=== PATIENT | female | born 1990 | race Caucasian/White ===

== ENCOUNTER 2016-04-15 11:12 | Outpatient (CLI) | payer BC | END 2016-04-15 11:13 | disposition home or self-care (01) | LOC: NC 11:12 | PROVIDERS: ATTEND Nurse Practitioner Family | DX: O99.810 Abnormal glucose complicating pregnancy (principal); O99.210 Obesity complicating pregnancy, unspecified trimester; Z71.3 Dietary counseling and surveillance; Z68.41 Body mass index [BMI] 40.0-44.9, adult ==

== ENCOUNTER 2016-04-29 12:56 | Outpatient (CLI) | payer BC | END 2016-04-29 12:57 | disposition home or self-care (01) | LOC: NC 12:56 | PROVIDERS: ATTEND Nurse Practitioner Family | DX: O99.210 Obesity complicating pregnancy, unspecified trimester (principal); Z71.3 Dietary counseling and surveillance; Z68.41 Body mass index [BMI] 40.0-44.9, adult; R73.02 Impaired glucose tolerance (oral) ==

== ENCOUNTER 2016-05-31 13:28 | Inpatient (IN) | payer BC ==
[2016-06-03] MEDS ORDERED: LIDOCAINE 1% (PRES FREE) 30 ML VIAL ONE (07:17)
[2016-06-03] MEDS ORDERED: MINERAL OIL 25 ML BOT ONE (07:17)
[2016-06-03] MEDS ORDERED: LIDOCAINE Viscous 2% 15 ML UDCUP ONE (07:17)
[2016-06-03] MEDS ORDERED: OXYTOCIN 10 UNITS/ML VIAL ONE (07:17)
[2016-06-03] MEDS ORDERED: IV START KIT ONE (07:17)
[2016-06-03] MEDS ORDERED: SODIUM CHLORIDE 0.9% FLUSH 10 ML ONE (07:17)
[2016-06-03] MEDS ORDERED: OXYTOCIN IN LR 500 ML IV ONE ×2 (07:18→09:55)
[2016-06-03] MEDS ORDERED: PUMP TUBING ONE (07:18)
[2016-06-03 08:04] VITALS: BMI 44.2
--- NOTE | 2016-06-03 10:03 | PCMAN ---
OB Admission Note - History : 1 Term: 0 : 0 Abortions (S&E): 0 Livin Gestational Age (weeks): 40 Days (#/7): 3 Admit Cervical Dilation:: 1.5 Admit Cervical Effacement (%):: 75 Admit Station:: -1 Admit Presentaton:: vertex Membrane Status: Intact Contractions: Yes Contraction Frequency:: q5-7 Heart Rate:: 140 Status:: Cat I - Labs Blood Type: O (+) positive Hct/Hgb:: 10.7 Rubella Status: Immune GBS Status: Negative Abnormal Labs: None - Review of Systems Denies F/C, cough, SOB, CP, palpitations. +occasional contractions. +FM, -VB/LOF - Physical Exam General: Afebrile Psych/Mental Status: Mood/Affect Appropriate, Judgment/Insight Intact Neurological: Grossly Intact, Alert, Oriented x 4, Normal Gait HEENT: Atraumatic, PERRLA, EOMI Lungs: Clear to Auscultation Bilaterally, Normal Air Movement Cardiovascular: Regular Rate and Rhythm, Normal S1, Normal S2 Abdomen: Normal Bowel Sounds Genitourinary: Normal Female Genitalia Extremities: Full ROM Skin: Normal Color, Warm, Dry, Intact - Problems (1) Gestational diabetes Qualifiers: Gestational diabetes mellitus control: diet-controlled Trimester: third trimester Qualifier Code: (O24.410) Gestational diabetes mellitus in , diet controlled Status: Acute Code: O24.419 - Additional Comments IOL for GDMA1, well controlled. cytotec 25 PV if contractions space out. FHT Cat I Expect .
[2016-06-03 10:13] LABS: HEMATOCRIT 35.8 % (37.0-47.0); HEMOGLOBIN 12.1 gm/l (12.0-16.0); MEAN CELL VOLUME 84.4 fl (81.0-99.0); MEAN CORPUSCULAR HEMOGLOBIN 28.5 pg (27.0-31.0); MEAN CORPUSCULAR HGB CONC 33.8 g/dl (33.0-37.0); RED CELL DISTRIBUTION WIDTH 13.7 % (11.5-14.5)
[2016-06-03] MEDS: MISOPROSTOL 25 MCG TABLET VG SCH ×3 (11:05→18:55)
--- NOTE | 2016-06-03 12:00 | PDOC36 ---
Provider Note Subject: Patient starting to feel regular contractions. Declines any pain medicine at this time. VSS SVE: deferred FHT: 120/mod/+accels/-decels [place]ell: 3-10 A/P: 25yo @40.3, IOL GDM -Cytotec placed @11AM. -FHT Cat I -Feeling increased contractions. -Continue to monitor. -Reevaluate @1500.
--- NOTE | 2016-06-03 15:52 | PDOC36 ---
Provider Note Subject: Patient doing well. Feeling contractions. Declines medication for pain at this time VSS SVE: /90/-1, intact FHT: 140/mod/+accel/-decel [place]: q3-4 min A/P 25yo @39.3 IOL GDM Continue monitoring. Pitocin if contractions space out. FHT Cat I since admission.
[2016-06-03] MEDS: LACTATED RINGERS 1,000 ML IV PRN (20:21)
[2016-06-03] MEDS: OXYTOCIN IN LR 500 ML IV PRN ×2 (21:06→21:45)
[2016-06-04] MEDS: LACTATED RINGERS 1,000 ML IV PRN ×5 (01:55→20:38)
[2016-06-04] MEDS: OXYTOCIN IN LR 500 ML IV PRN ×9 (02:37→17:49)
--- NOTE | 2016-06-04 09:25 | PDOC36 ---
Provider Note Subject: [place] of care Note: S: Jenny only slept for perhaps 2 hours last night but is doing OK and wants to have this baby today. She is hungry and is fasting since dinner last night. Jenny is a 25yo now at 40w4d admitted yesterday by Dr Medina for induction: she has GDM fairly well controlled with diet and Metformin 1000mg qPM. She had a good response to a single dose of misoprostol yesterday morning. She then was on low dose pitocin overnight. Her baby "Barrera" has been doing well with a normal sleep/wake cycle, mostly category 1 with a baseline at 120. Pt having regular mild contrx q 2-4 mins, now a bit more frequent on pit 10mu/mn. [facility] and [facility] charts reviewed. Pt is here with her Zach, and her mother. Exam: Jenny is awake and alert and engaged. She moves with good energy. EFW 7.5-8 lbs, cephalic back to mat left VE cervix anterior, vertex applied at -2 station, 2cm, soft, 80%, not stretchy Imp: GDM with favorable exam but not much measurable change with pit overnight. Fasting glc is 83. Pt will have a real breakfast. She needs to get up, out of bed, moving around. Plan: Continue pitiocin at 10mu for now. Re-eval in 2-3 hours.
[2016-06-04] MEDS: MISOPROSTOL 25 MCG TABLET VG SCH ×2 (10:20→10:21)
[2016-06-04] MEDS ORDERED: OXYTOCIN IN LR 500 ML IV PRN (11:28)
--- NOTE | 2016-06-04 11:59 | PDOC36 ---
Provider Note Subject: Lu balloon Note: S: Pt not feeling contractions much, but doing better after breakfast and getting out of bed. Options discussed. Exam: cervix ant, 2cm, soft but not stretchy, vertex -1 station and well applied , membranes intact. Since this cervix still needs to get more stretchy, it was decided to try a lu balloon. Pt agrees. This was placed gently thru the cervix and inflated with 35 cc of saline. Pt began having more pressure and painful contrx even with the pitocin off. Plan is to watch for 30-60 min. If contractions space out, we will restart with a new bag of pitocin. Hopefully AROM with next exam.
[2016-06-04] MEDS ORDERED: PUMP TUBING ONE (17:17)
--- NOTE | 2016-06-04 17:32 | PDOC36 ---
Provider Note Subject: AROM Note: Jenny had a good nap for a little over 1 hour. She felt more relaxed and rested. Mild contractions. Exam: FH cat 1, excellent variability. VE cervix now 4cm and lu balloon half in vagina. Vertex -1, cvx 3-4cm and stretchy, soft, 90% With pt's permission, AROM performed yielding clear fluid. Imp: Hopefully this will help with progress into active labor. Plan: Expectant managt.
[2016-06-04] MEDS ORDERED: LACTATED RINGERS 500 ML IV ONE (17:47)
[2016-06-04] MEDS ORDERED: EPIDURAL PUMP SET ONE (19:27)
[2016-06-04] MEDS ORDERED: FENTANYL/ROPIVACAINE EPIDURAL 250 ML EP ONE (19:27)
[2016-06-04] MEDS ORDERED: FENTANYL 100 MCG/2 ML VIAL ONE (19:59)
[2016-06-04] MEDS ORDERED: EPIDURAL PROCEDURE TRAY ONE (20:00)
[2016-06-04] MEDS ORDERED: LIDOCAINE 2% (PRES FREE) 5 ML VIAL ONE (20:00)
[2016-06-04] MEDS ORDERED: FENTANYL/ROPIVACAINE EPIDURAL 250 ML EP SCH (20:00)
[2016-06-04] MEDS ORDERED: LACTATED RINGERS 1,000 ML IV SCH (20:38)
[2016-06-04] MEDS ORDERED: SODIUM CHLORIDE 0.9% 500 ML IV PRN (20:38)
[2016-06-04] MEDS ORDERED: NALBUPHINE HCL 20 MG/ML AMP IV PRN (20:38)
[2016-06-04] MEDS ORDERED: ONDANSETRON 4 MG/2ML 2 ML VIAL IV PRN (20:38)
[2016-06-04] MEDS ORDERED: EPHEDRINE SULFATE 50 MG/ML 1ML VIAL IV PRN (20:38)
[2016-06-04] MEDS ORDERED: NALOXONE HCL 0.4 MG/ML VIAL IV PRN (20:38)
[2016-06-04] MEDS ORDERED: LACTATED RINGERS 500 ML IV PRN (20:38)
[2016-06-04] MEDS ORDERED: METOCLOPRAMIDE HCL 5 MG/ML 2ML VIAL IV PRN (20:38)
[2016-06-04] MEDS ORDERED: DIPHENHYDRAMINE HCL 50 MG/1 ML VIAL IV PRN (20:38)
--- NOTE | 2016-06-04 21:22 | PDOC36 ---
Provider Note Subject: Progress Note: S: pt is feeling great: her epidural is working well and she is feeling no pain. She would like to take a nap. O: last exam by RN 30' ago showed 4-5 cm Funez was placed. Contractions were getting much stronger. FH improved after pt moved to left side; now adq variability with no decels. Pitocin at 5 mu/mn Imp: Active phase of labor. Plan: Continue pitocin. Nap. Then re-eval in about 2 hours.
--- NOTE | 2016-06-04 23:21 | PDOC36 ---
Provider Note Subject: Progress? Note: S: pt is resting well, only a bit aware of contrx. O: VS stable, FH moderate variability 120's, but some segments of low variability No persistent decels VE: cervix anterior, vtx loosely applied at -1 station, position ROP maybe, cervix is stretchy, 95%, not edematous, but only 5cm dilated. pelvis seems adequate It was recommended that an IUPC be placed for better titration of pitocin. Pt agreed. IUPC placed without difficulty, + bloody show Imp: Slow progress, this was explained to pt and family. Plan: Position change Increase pitocin as allowed.
[2016-06-05] MEDS: OXYTOCIN IN LR 500 ML IV PRN ×2 (01:36→02:23)
--- NOTE | 2016-06-05 01:42 | PDOC36 ---
Provider Note Note: Pt is having some shaking but not really feeling cold. Pitocin was turned off at about 00:45 because of cat 2 strip, low variability with some possible late decels. Exam: Afebrile still, normal BP shakey, not hungry but not queasy cvx 6-7cm, stretchy, 100%, vertex still loosely applied -1 station, ?ROT position Scalp clip placed with pt's permission Improved variability with scalp stim, baseline 120 with no worrisome decels Contrx have spaced since pit off, q5min Plan: PO juice for some calories Check blood sugar Restart pitocin
--- NOTE | 2016-06-05 03:37 | PDOC36 ---
Provider Note Subject: Progress note Note: Pt is miserable with several episodes of emesis, feeling lots of pressure in her bottom Exam: ant lip with vertex now +1, ? position Pitocin is back up to 10 mu/mn, contrx q 2-3 of adeq duration and strength FH 125-130 baseline with improved variability Imp: Significant change PLan: Passive descent or just moaning/grunting with contrx for next 30' until fully dilated.
[2016-06-05] MEDS: LACTATED RINGERS 1,000 ML IV PRN (05:02)
--- NOTE | 2016-06-05 05:05 | PDOC36 ---
Provider Note Subject: Pushing Note: Pt has been pushing since approx 04:15, with good effort. Caput is starting to crown. Scalp clip came off, and IUPC removed Progressive descent. Continue pushing.
[2016-06-05] MEDS ORDERED: PNEUMOCOCCAL 23-VAL P-SAC VAC 0.5 ML VIAL IM V ONE (05:40)
--- NOTE | 2016-06-05 10:08 | PCMDEL ---
Delivery Note - Labor 1st stage (hr/min):: 11h 2nd stage (hr/min):: [id number] 3rd stage (hr/min):: 9min Total (hr/min):: [id number] Pushed (hr/min):: [id number] - Delivery Delivery (Date): 06/05/16 Delivery (Time): 05:19 Infant Gender: Male Weight: 8 lb 1 oz Presentation: Cephalic Position: OA Umbilical Cord: 3 Vessel Delayed Cord Clamping:: > 3 min 1 Minute Total: 9 5 Minute Total: 9 Placenta:: complete EBL:: 300cc Perineum:: 2nd degree post perineal and anterior inner labial Suture:: 2.0 and 3.0 chromic Anesthesia/Meds:: epidural Length ROM:: [id number] Comments:: Jenny progressed gradually to full dilation, but then had excellent pushing effort. There was normal descent and in an STEVE position. Head delivered with a large gush of meconium thick fluid, followed directly by the ant then post shoulders. Mouth was suctioned as baby was placed on [facility], dried and evaluated. Cord later clamped and then cut by [facility]. Placenta delivered spontaneously without difficulty. Repair done without additional medication. Mother and baby boy "Barrera" did well in period.
[2016-06-05] MEDS ORDERED: IBUPROFEN 800 MG TABLET ONE (14:47)
[2016-06-05] MEDS: IBUPROFEN 800 MG TABLET PO PRN (14:50)
[2016-06-05] MEDS: OXYCODONE/ACETAMINOPHEN 5/325 MG TABLET PO PRN (19:56)
[2016-06-06] MEDS: IBUPROFEN 800 MG TABLET PO PRN (05:18)
[2016-06-06] MEDS: OXYCODONE/ACETAMINOPHEN 5/325 MG TABLET PO PRN (05:18)
[2016-06-06 15:13] VITALS: BP 127/76
== END 2016-06-06 16:15 | disposition home or self-care (01) | DRG 775 ==
LOC: FBC 06-03 06:58
PROVIDERS: ADMIT Obstetrics & Gynecology; ATTEND Obstetrics & Gynecology
PROC: 3E0P7GC Introduction of Other Therapeutic Substance into Female Reproductive, Via Natural or Artificial Opening (ICD-10-PCS; principal; 2016-06-03)
PROC: 10H07YZ Insertion of Other Device into Products of Conception, Via Natural or Artificial Opening (ICD-10-PCS; 2016-06-03)
PROC: 10907ZC Drainage of Amniotic Fluid, Therapeutic from Products of Conception, Via Natural or Artificial Opening (ICD-10-PCS; 2016-06-04)
PROC: 4A1H7CZ Monitoring of Products of Conception, Cardiac Rate, Via Natural or Artificial Opening (ICD-10-PCS; 2016-06-04)
PROC: 10E0XZZ Delivery of Products of Conception, External Approach (ICD-10-PCS; 2016-06-05)
PROC: 0KQM0ZZ Repair Perineum Muscle, Open Approach (ICD-10-PCS; 2016-06-05)
DX: O24.420 Gestational diabetes mellitus in childbirth, diet controlled (principal); Z3A.40 40 weeks gestation of pregnancy; Z37.0 Single live birth; O76 Abnormality in fetal heart rate and rhythm complicating labor and delivery; O70.1 Second degree perineal laceration during delivery; O77.0 Labor and delivery complicated by meconium in amniotic fluid